=== PATIENT | female | born 1980 | race Hispanic/Latino ===

== ENCOUNTER 2024-12-26 06:03 | Day surgery (SDC) | payer OTHER ==
[2024-12-24 10:57] VITALS: BP 117/73; PULSE 80; RESP 18; TEMP 98
[2024-12-24 11:11] LABS: CREATININE 0.8 mg/dL (0.5-1.0); GLOMERULAR FILTR. RATE CALC 92.0 mL/min (>90); GLUCOSE,RANDOM 93.0 mg/dL (70-105); SODIUM SERUM 142.0 mmol/L (136-145); UREA NITROGEN, BLOOD 13.0 mg/dL (7-18)
[2024-12-24 11:15] LABS: IMMATURE GRANULOCYTE ABSOLUTE 0.02 K/uL (0-1); NUCLEATED RED BLOOD CELLS 0.0 % (0.0-0.19); PLATELET COUNT (AUTO) 239 K/uL (130-400); RED BLOOD CELL COUNT(AUTO) 4.31 MIL/uL (4.00-5.50); RED CELL DISTRIBUTION WIDTH 12.4 % (11.0-15.5); WHITE BLOOD COUNT (AUTO) 5.7 K/uL (4.8-10.8)
[2024-12-24 11:24] LABS: INR 0.97 (0.85-1.15)
[~2024-12-26] VITALS: Ht 162.6 cm; Wt 69.7 kg
[2024-12-26] VITALS (14 sets, daily range): BP systolic 100–122; BP diastolic 51–76; PULSE 58–75; RESP 14–18; TEMP 97.1–97.6
[~2024-12-26 06:03] MED LIST: ESTRADIOL PO; FAMO40TA7 PO; MELO-106 PO; PANT40TA54 PO; RIZA10TA41 PO; TOPI-258 PO; TRAZ-185 PO; VENL-53 PO; VENL-83 PO
[2024-12-26] MEDS ORDERED: LACTATED RINGERS 1000ML 1,000 ML IV ONE (06:12)
[2024-12-26] MEDS ORDERED: MIDAZOLAM HCL 1 MG/ML 2ML VIAL ONE (06:40)
[2024-12-26] MEDS ORDERED: HYDR-4060 PO (06:52)
[2024-12-26] MEDS ORDERED: CYCL-309 PO (06:52)
[2024-12-26] MEDS ORDERED: LIDOCAINE 2%-EPI 1:200,000 20 ML VIAL IJ ONE (06:55)
[2024-12-26] MEDS ORDERED: NEOSTIGMINE METHYLSULFATE 1MG/ML IV ONE (09:07)
[2024-12-26] MEDS ORDERED: GLYCOPYRROLATE 0.2 MG/ML 5 ML VIAL ONE (09:07)
--- NOTE | 2024-12-26 09:22 | OP ---
Operative Note: DATE OF PROCEDURE: 12/26/24 SURGEON: BALJIT BRAND MD VENEER GLUE JOINTER FEEDBACK: Leland Clifton ANESTHESIA: General and interscalene block ANESTHESIOLOGIST/CLIENT EXPERIENCE CONSULTANT: Maciel Brewer PREOPERATIVE DIAGNOSIS: Right shoulder subacromial impingement, acromioclavicular joint osteoarthritis, partial-thickness tear supraspinatus POSTOPERATIVE DIAGNOSIS: Right shoulder subacromial impingement, acromioclavicular joint osteoarthritis, partial-thickness tear supraspinatus PROCEDURE: Left shoulder arthroscopic subacromial decompression, distal clavicle excision, labral debridement and supraspinatus debridement. ESTIMATED BLOOD LOSS: 20 cc FINDINGS: Diffuse degenerative fraying of the labrum was noted with a partial- thickness tearing of the supraspinatus adjacent to the rotator interval. There was diffuse hypertrophic synovial tissue and minimal partial-thickness tearing of the supraspinatus moving posteriorly. After debriding the labrum to stable edge in debriding the articular surface tear of the supraspinatus we are able to identify that the majority of the supraspinatus tendon was still intact. We then repositioned the arthroscope into the subacromial space and performed subacromial decompression with bony debridement of the acromion and lateral acromial spurs. Bony debridement of the distal clavicle was also performed. INDICATIONS: 44-year-old female with a history of right shoulder pain. They were failing conservative management and found on MRI to have partial-thickness tear of the supraspinatus with lateral acromial spurring and hypertrophic AC joint.. After discussion of the risk, benefits, and alternatives, the patient voluntarily agreed to undergo the aforementioned procedure. DESCRIPTION OF PROCEDURE: Patient was properly identified in the preoperative holding area. Surgical site marking was verified and surgery consent reviewed. The patient was then taken to the operating room and placed in supine position on the OR table. After induction of general anesthesia, preoperative antibiotics were given, all bony prominences were well-padded as the patient was transitioned into beachchair position. The right upper extremity was then prepped and draped in usual sterile fashion. Surgical timeout was done verifying correct surgery, side, site, and location to be performed. We then began the procedure by using an 18-gauge spinal needle to inject the shoulder joint with normal saline to distend the joint capsule. A posterior lateral portal was established using 11 blade and we inserted our arthroscope through this portal. We established an anterior portal using needle localization under direct visualization and placed a working cannula through this portal. We then performed a diagnostic arthroscopy with the aforementioned findings. We then evaluated the tear of the supraspinatus. We debrided back to healthy tissue improve this tissue. We noted that the tissue appeared to have the majority of the supraspinatus still intact. We then repositioned the arthroscope into the subacromial space and established a lateral portal. Subacromial decompression was done performing bursectomy as well as a shaving th e lateral spurs off of the acromion and proximally 2-3 mm of the undersurface of the acromial bone. We identified the acromioclavicular joint and he resected a proximally 8 mm off the distal clavicle. The rotator cuff had minimal fraying on the bursal side and was otherwise intact. We then removed as much of the arthroscopic fluid as possible and removed the arthroscopic instruments and camera. We expressed some the remaining fluid from the surrounding soft tissues. 3-0 nylon was then used to close the skin portals. Sterile soft dressing was applied. Patient was then placed into a shoulder immobilizer, awakened from anesthesia, and taken the recovery room in stable condition. BALJIT BRAND MD Dec 26, 2024 09:22
== END 2024-12-26 10:50 | disposition home or self-care (01) ==
LOC: DAH 06:03
PROVIDERS: ATTEND Student in an Organized Health Care Education/Training Program
DX: M75.41 Impingement syndrome of right shoulder (principal); M75.111 Incomplete rotator cuff tear or rupture of right shoulder, not specified as traumatic; M19.011 Primary osteoarthritis, right shoulder; M25.511 Pain in right shoulder; K21.9 Gastro-esophageal reflux disease without esophagitis; M25.811 Other specified joint disorders, right shoulder; F41.9 Anxiety disorder, unspecified; F32.A Depression, unspecified; Z90.710 Acquired absence of both cervix and uterus; Z79.01 Long term (current) use of anticoagulants; Z98.890 Other specified postprocedural states; Z79.899 Other long term (current) drug therapy
CPT/HCPCS: 80048; 85025; 85610; 85730; 36415; 29824; 29826; 64415; A4663; J7030; J7120; J3010 ×3; J1100 ×2; J0169; J3490 ×3; J2250; J2704; J2405; J2710; J2371; J0690; A6223; A4930; A5120; A4215; A4223 ×2; A4213; A4222; A4221; A4216; A4600; A4450